=== PATIENT | female | born 1955 | race Caucasian/White ===

== ENCOUNTER 2017-12-18 15:38 | Emergency (ER) | payer MEDICAID, OTHER ==
[~2017-12-18] VITALS: Ht 162.6 cm; Wt 75.4 kg
[~2017-12-18 15:38] MED LIST: ALBU2.5V11 NEB; ALBU6.7H INH; IPRA4AER HOMEINH; MELO7.5T5 PO; META-23 PO; OMEP-110 PO; OMEP40CA6 PO; PANT40TA3 PO; SULF1TAB24 PO; THYR15TA PO
[2017-12-18] MEDS ORDERED: ALBUTEROL/IPRATROPIUM 2.5MG/0.5MG, 3 ML ONE (17:18)
[2017-12-18] MEDS ORDERED: ALBUTEROL/IPRATROPIUM 2.5MG/0.5MG, 3 ML NPPB ONE (17:30)
[2017-12-18 17:37] LABS: ALBUMIN 3.5 g/dL (3.4-5.0); ANION GAP 10 mmol/L (5-15); CALCIUM 8.7 mg/dL (8.5-10.1); CHLORIDE 110 mmol/L (98-107)
[2017-12-18 17:40] LABS: ALANINE AMINOTRANSFERASE 21 U/L (12-78); ALKALINE PHOSPHATASE 77 U/L (45-117); BILIRUBIN,TOTAL 0.4 mg/dL (0.2-1.0); CREATININE 0.74 mg/dL (0.55-1.02); TOTAL PROTEIN 6.7 g/dL (6.4-8.2)
[2017-12-18 17:45] LABS: MD YES; MEAN CORPUSCULAR HEMOGLOBIN 29.4 pg (27.0-34.8); MEAN CORPUSCULAR HGB CONC 34.2 g/dL (32.4-35.8); MEAN CORPUSCULAR VOLUME 85.8 fL (80-100); MEAN PLATELET VOLUME 9.6 fL (7.4-10.4); PLATELET COUNT 185 x10^3/uL (130-400); RED BLOOD COUNT 5.69 x10^6/uL (3.82-5.3); RED CELL DISTRIBUTION WIDTH 13.9 % (9.6-15.2)
[2017-12-18 17:47] LABS: BAND#(MANUAL) 0.37 x10^3/uL; BANDS%(MANUAL) 4 % (0-7); EOS#(MANUAL) 0.09 x10^3/uL (0.0-0.4); EOS% (MANUAL) 1 % (1-7); LYMPH#(MANUAL) 0.83 x10^3/uL (1-3.4); LYMPHS% (MANUAL) 9 % (22-44); MONOS#(MANUAL) 0.28 x10^3/uL (0.3-2.7); MONOS% (MANUAL) 3 % (2-9); SEG#(MANUAL) 7.64 x10^3/uL (1.8-6.8); SEGS% (MANUAL) 83 % (42-75)
[2017-12-18 17:48] LABS: <PLATELET ESTIMATE> ADEQUATE; <RBC MORPHOLOGY> NORMAL; LARGE PLATELETS 1+
[2017-12-18] MEDS ORDERED: ACETAMINOPHEN 500 MG TABLET ONE (18:20)
[2017-12-18] MEDS ORDERED: ACETAMINOPHEN 500 MG TABLET PO ONE (18:30)
[2017-12-18 18:57] VITALS: BP 131/67
== END 2017-12-18 19:01 | disposition home or self-care (01) ==
LOC: ED 18:32
DX: J45.51 Severe persistent asthma with (acute) exacerbation (principal); F41.1 Generalized anxiety disorder; M54.9 Dorsalgia, unspecified; G89.29 Other chronic pain; F17.200 Nicotine dependence, unspecified, uncomplicated
CPT/HCPCS: 36415; 71045; 80053; 85025; 93005; 94640; 99285; J7512; J7620

== ENCOUNTER 2018-01-04 13:36 | Emergency (ER) | payer MEDICAID, OTHER ==
[~2018-01-04] VITALS: Ht 162.6 cm; Wt 74.5 kg
[2018-01-04 14:42] LABS: MICROSCOPIC INDICATED
[2018-01-04 14:43] LABS: CULTURE INDICATED? YES
[2018-01-04] MEDS ORDERED: HYDROcodone/APAP 5/325 TABLET PO PRN (15:00)
[2018-01-04] MEDS ORDERED: PHENAZOPYRIDINE 200 MG TABLET PO ONE (15:00)
[2018-01-04 15:11] LABS: MEAN CORPUSCULAR HEMOGLOBIN 28.7 pg (27.0-34.8); MEAN CORPUSCULAR HGB CONC 33.4 g/dL (32.4-35.8); MEAN CORPUSCULAR VOLUME 85.9 fL (80-100); MEAN PLATELET VOLUME 8.4 fL (7.4-10.4); PLATELET COUNT 279 x10^3/uL (130-400); RED BLOOD COUNT 5.75 x10^6/uL (3.82-5.3); RED CELL DISTRIBUTION WIDTH 13.8 % (9.6-15.2)
[2018-01-04] MEDS ORDERED: HYDROcodone/APAP 5/325 TABLET ONE (15:11)
[2018-01-04] MEDS ORDERED: PHENAZOPYRIDINE 200 MG TABLET ONE (15:11)
[2018-01-04] MEDS ORDERED: CEFTRIAXONE 1,000 MG ONE (15:12)
[2018-01-04 15:21] LABS: ALBUMIN 3.7 g/dL (3.4-5.0); ANION GAP 9 mmol/L (5-15); CALCIUM 9.1 mg/dL (8.5-10.1); CHLORIDE 108 mmol/L (98-107)
[2018-01-04 15:23] LABS: CREATININE 0.93 mg/dL (0.55-1.02)
[2018-01-04 15:24] VITALS: BP 136/73
[2018-01-04] MEDS ORDERED: CEFTRIAXONE 1,000 MG IM ONE ×2 (15:30)
[2018-01-04 15:40] LABS: BASOPHILS # (AUTO) 0.23 x10^3/uL (0-0.1); BASOPHILS % (AUTO) 1 % (0-1); EOSINOPHILS # (AUTO) 0.03 x10^3/uL (0-0.4); EOSINOPHILS % (AUTO) 0 % (1-7); LYMPHOCYTES # (AUTO) 1.97 x10^3/uL (1-3.4); LYMPHOCYTES % (AUTO) 11 % (22-44); MD SCAN; MONOCYTES # (AUTO) 0.77 x10^3/uL (0.2-0.8); MONOCYTES % (AUTO) 4 % (2-9); NEUTROPHILS # (AUTO) 15.34 x10^3/uL (1.8-6.8); NEUTROPHILS % (AUTO) 84 % (42-75)
== END 2018-01-04 15:42 | disposition home or self-care (01) ==
LOC: ED 15:26
DX: R30.0 Dysuria (principal); N30.01 Acute cystitis with hematuria; J44.9 Chronic obstructive pulmonary disease, unspecified
CPT/HCPCS: 36415; 80048; 81001; 82040; 85025; 87077; 87086; 96372; 99284; J0696

== ENCOUNTER 2018-01-05 17:46 | Emergency (ER) | payer MEDICAID, OTHER ==
[~2018-01-05] VITALS: Ht 162.6 cm; Wt 75.6 kg
[2018-01-05] MEDS ORDERED: PROMETHAZINE 25 MG/ML, 1ML ONE (18:21)
[2018-01-05 18:22] LABS: BASOPHILS # (AUTO) 0.02 x10^3/uL (0-0.1); BASOPHILS % (AUTO) 0 % (0-1); EOSINOPHILS # (AUTO) 0.08 x10^3/uL (0-0.4); EOSINOPHILS % (AUTO) 1 % (1-7); LYMPHOCYTES # (AUTO) 0.71 x10^3/uL (1-3.4); LYMPHOCYTES % (AUTO) 6 % (22-44); MD NO; MEAN CORPUSCULAR HEMOGLOBIN 29.3 pg (27.0-34.8); MEAN CORPUSCULAR HGB CONC 33.7 g/dL (32.4-35.8); MEAN CORPUSCULAR VOLUME 86.9 fL (80-100); MEAN PLATELET VOLUME 8.7 fL (7.4-10.4); MONOCYTES # (AUTO) 0.41 x10^3/uL (0.2-0.8); MONOCYTES % (AUTO) 3 % (2-9); NEUTROPHILS # (AUTO) 11.32 x10^3/uL (1.8-6.8); NEUTROPHILS % (AUTO) 90 % (42-75); PLATELET COUNT 243 x10^3/uL (130-400); RED BLOOD COUNT 6.16 x10^6/uL (3.82-5.3); RED CELL DISTRIBUTION WIDTH 14.2 % (9.6-15.2)
[2018-01-05] MEDS ORDERED: PROMETHAZINE 25 MG/ML, 1ML IM ONE (18:30)
[2018-01-05] MEDS ORDERED: ONDANSETRON ODT 4 MG PO ONE (18:30)
[2018-01-05 18:31] LABS: ALANINE AMINOTRANSFERASE 25 U/L (12-78); ALBUMIN 3.6 g/dL (3.4-5.0); ANION GAP 8 mmol/L (5-15); CALCIUM 8.5 mg/dL (8.5-10.1); CHLORIDE 104 mmol/L (98-107); CREATININE 1.14 mg/dL (0.55-1.02)
[2018-01-05 18:33] LABS: ALKALINE PHOSPHATASE 83 U/L (45-117)
[2018-01-05] MEDS ORDERED: ONDANSETRON ODT 4 MG ONE (18:34)
[2018-01-05 19:07] VITALS: BP 104/49
[2018-01-05 19:10] LABS: CULTURE INDICATED? YES; MICROSCOPIC INDICATED
== END 2018-01-05 20:35 | disposition home or self-care (01) ==
LOC: ED 18:09
DX: N30.90 Cystitis, unspecified without hematuria (principal); J44.9 Chronic obstructive pulmonary disease, unspecified; R11.2 Nausea with vomiting, unspecified; Z87.01 Personal history of pneumonia (recurrent); Z90.710 Acquired absence of both cervix and uterus; Z88.1 Allergy status to other antibiotic agents
CPT/HCPCS: 36415; 80053; 81001; 85025; 87086; 99284; Q0162

== ENCOUNTER 2018-07-21 03:24 | Emergency (ER) | payer MEDICAID, OTHER ==
[2018-07-21] MEDS ORDERED: DOXYCYCLINE 100MG TABLET ONE (03:46)
[2018-07-21] MEDS ORDERED: HYDROcodone/APAP 5/325 TABLET ONE (03:46)
[2018-07-21] MEDS ORDERED: KETOROLAC 30 MG/1 ML ONE (03:46)
[2018-07-21] MEDS ORDERED: DIPH,PERTUSS(ACELL),TET VAC/PF 0.5 ML IM-VACC ONE ×2 (03:47→04:00)
[2018-07-21] MEDS ORDERED: DOXYCYCLINE 100MG TABLET PO ONE (04:00)
[2018-07-21] MEDS ORDERED: KETOROLAC 30 MG/1 ML IM ONE (04:00)
[2018-07-21] MEDS ORDERED: HYDROcodone/APAP 5/325 TABLET PO ONE (04:00)
[2018-07-21 04:18] VITALS: BP 139/74
== END 2018-07-21 04:20 | disposition home or self-care (01) ==
LOC: ED 04:10
DX: S60.571A Other superficial bite of hand of right hand, initial encounter (principal); S61.250A Open bite of right index finger without damage to nail, initial encounter; J44.9 Chronic obstructive pulmonary disease, unspecified; G89.29 Other chronic pain; M54.9 Dorsalgia, unspecified; F17.200 Nicotine dependence, unspecified, uncomplicated; W55.01XA Bitten by cat, initial encounter; Y93.89 Activity, other specified; Y92.009 Unspecified place in unspecified non-institutional (private) residence as the place of occurrence of the external cause; Y99.8 Other external cause status
CPT/HCPCS: 90471; 90715; 96372; 99283; J1885